=== PATIENT | male | born 1960 | race Two or more races ===

== ENCOUNTER → 2025-01-28 | Outpatient (CLI) | payer MEDICAID, SELFPAY | END | disposition home or self-care (01) | PROVIDERS: PCP Physician Assistant; Referring Provider Physician Assistant; Visit Provider Physician Assistant | DX: Z53.8 Procedure and treatment not carried out for other reasons (principal) ==

== ENCOUNTER → 2025-02-05 | Outpatient (CLI) | payer MEDICAID, SELFPAY ==
--- NOTE | 2025-02-05 10:00 | XR_ITS ---
Examination: Transrectal prostate sonography TECHNIQUE: Grayscale transrectal sonographic images prostate February 05, 2025 1128 hours INDICATIONS: Diagnosis benign prostatic hyperplasia FINDINGS: Prostate 3.9 x 2.9 x 3.8 cm volume 22 cc Small calcifications No prostate nodules IMPRESSION: No significant prostatomegaly No prostate nodules
== END | disposition home or self-care (01) ==
PROVIDERS: PCP Physician Assistant; Referring Provider Physician Assistant; Visit Provider Physician Assistant
DX: N40.1 Benign prostatic hyperplasia with lower urinary tract symptoms (principal)
CPT/HCPCS: 76872

== ENCOUNTER 2025-02-20 11:45 | Day surgery (SDC) | payer MEDICAID, SELFPAY ==
[2025-02-19 14:52] VITALS: BMI 30.2
[2025-02-20] VITALS (12 sets, daily range): BP systolic 106–142; BP diastolic 71–84; PULSE 66–79; RESP 13–18; TEMP 36.6–36.7; O2SAT 96–100; BMI 23.8
[2025-02-20] MEDS: RINGERS LACTATED 1000 ML 1,000 ML 100 ML IV (14:11)
[2025-02-20] MEDS: fentaNYL CIT INJ 50 mCg/ML AMP 2ML (ASD USE ONLY) IV (14:12)
[2025-02-20] MEDS: MIDAZOLAM INJ 1 MG/ML VIAL 2 ML (ASD USE ONLY) 2 MG IV (14:13)
== END 2025-02-20 15:20 | disposition home or self-care (01) ==
PROVIDERS: PCP Physician Assistant; Referring Provider Surgery; Visit Provider Surgery
PROC: 0DBE8ZX Excision of Large Intestine, Via Natural or Artificial Opening Endoscopic, Diagnostic (ICD-10-PCS; CPT 45380; principal; 2025-02-20 13:45)
DX: Z12.11 Encounter for screening for malignant neoplasm of colon (principal)
CPT/HCPCS: 45378; A4217; J2250; J3010; J7120